=== PATIENT | female | born 2000 | race Caucasian/White ===

== ENCOUNTER → 2020-05-22 10:04 | Outpatient (CLI) | payer OTHER, SELFPAY ==
--- NOTE | 2020-05-22 10:10 | DI.US.S_ITS ---
PROCEDURE: US OB >= 14 WEEKS FETUS INDICATIONS: 20 WEEK ANATOMY OUTSIDE/PRIOR DATING DATA: Last menstrual period (LMP): 01/03/2020. LMP-based estimated date of delivery (PAMELLA): 10/09/2020 . First dating scan (date and location): 05/22/2019 . Estimated date of delivery (PAMELLA) from first dating scan: 10/06/2019 . TECHNIQUE: Real-time scanning was performed of the fetus, with image documentation and biometric measurements. Endovaginal scanning: No COMPARISON: None. FINDINGS: General: A single living intrauterine gestation is present. Presentation: Breech. Placenta: Placental position is anterior , without previa. Amniotic fluid index: 17 cm, normal range is 5-24 cm. heart rate: 132 beats per minute. Maternal cervical canal: 3.4 cm long. Normal lower limit is 2.5 cm. biometrics: Biparietal diameter: 20 weeks 5 days Head circumference: 20 weeks 5 days Abdominal circumference: 20 weeks 5 days Femur length: 20 weeks 2 days Estimated gestational age from initial scan: not applicable. Composite gestational age from present scan: 20 weeks 4 days Estimated weight and percentile: 363 g; 78th percentile Measurement variability for biometric dating: +/- 7 days from 14 weeks to 15 weeks 6 days gestation, +/- 10 days from 16 weeks to 21 weeks 6 days gestation, +/- 2 weeks from 22 weeks to 27 weeks 6 days gestation, +/- 3 weeks for 28 weeks gestation or later. weight reference: 4500 g or EFW >90/95% is considered macrosomia or large for gestational age. EFW <10% is small for gestational age. EFW 5% or less is considered intra-uterine growth restriction. Anatomic survey: Neuro: Ventricles are non-dilated at less than 10 mm. Cisterna magna is normal at 3-11 mm. Cerebellum is normal in size and morphology. Nuchal skin fold: Normal at less than 6 mm between 14-21 weeks gestational age. Face: Nose and lips are normal and the facial profile is not well seen. Spine: No evidence for spina bifida. Heart: 4-chambered heart is present, with normal ventricular outflow tracts. Diaphragm: Diaphragm is intact. Stomach: Left-sided stomach is present. Kidneys: No hydronephrosis. Normal is less than 5 mm in 2nd trimester, less than 7 mm in 3rd trimester. Cord: 3-vessel cord has orthotopic insertion. Bladder: Normal in size. Extremities: All 4 extremities identified. IMPRESSION: 1. Single living IUP with mean composite gestational age of 20 weeks 4 days corresponding to ultrasound PAMELLA of 10/05/2020. 2. Facial profile not well visualized; otherwise normal anatomy. Follow-up recommended. Dictated by: Enrique ARMSTRONG Interpreted: Wisam Stokes MD on 05/22/2020 at 11:55 Approved by: Wisam Stokes M.D. on 05/22/2020 at 13:17
== END ==
PROVIDERS: PCP Nurse Practitioner Obstetrics & Gynecology; Referring Provider Nurse Practitioner Obstetrics & Gynecology; Visit Provider Nurse Practitioner Obstetrics & Gynecology
DX: Z36.89 Encounter for other specified antenatal screening (principal); Z3A.20 20 weeks gestation of pregnancy
CPT/HCPCS: 76811

== ENCOUNTER → 2020-06-17 10:02 | Outpatient (CLI) | payer OTHER, SELFPAY ==
[2020-06-17 11:03] LABS: COVID19 -Nasal RAPID Negative (Negative)
== END ==
PROVIDERS: PCP Nurse Practitioner Obstetrics & Gynecology; Visit Provider Physician Assistant
DX: Z20.822 Contact with and (suspected) exposure to COVID-19 (principal)
CPT/HCPCS: 87635

== ENCOUNTER → 2020-06-23 09:44 | Outpatient (CLI) | payer OTHER, SELFPAY ==
--- NOTE | 2020-06-23 09:45 | DI.US.S_ITS ---
PROCEDURE: US OB FOLLOW UP INDICATIONS: FACIAL PROFILE NOT VISUALIZED OUTSIDE/PRIOR DATING DATA: Last menstrual period (LMP): January 03, 2020. LMP-based estimated date of delivery (PAMELLA): October 09, 2020. First dating scan (date and location): May 22, 2020. Estimated date of delivery (PAMELLA) from first dating scan: October 05, 2020. TECHNIQUE: Real-time scanning was performed of the fetus, with image documentation. Endovaginal scanning: Performed COMPARISON: [facility], OB >= 14 WEEKS FETUS, 05/22/2020, 10:26. FINDINGS: A single living intrauterine gestation is present. Presentation: Cephalic heart rate: 139 beats per minute. Estimated gestational age from initial scan: 25 weeks 1 day. facial profile incompletely visualized due to position. The partially visualized facial profile is within normal limits. IMPRESSION: facial profile suboptimally visualized due to position. Visualized portion of the facial profile is within normal limits. Dictated by: Ashley Sandoval MD, PhD on 06/24/2020 at 17:28 Approved by: Ashley Sandoval MD, PhD on 06/24/2020 at 17:31
== END ==
PROVIDERS: PCP Nurse Practitioner Obstetrics & Gynecology; Referring Provider Nurse Practitioner Obstetrics & Gynecology; Visit Provider Nurse Practitioner Obstetrics & Gynecology
DX: Z36.2 Encounter for other antenatal screening follow-up (principal); Z3A.25 25 weeks gestation of pregnancy
CPT/HCPCS: 76816

== ENCOUNTER → 2020-07-03 07:49 | Outpatient (CLI) | payer OTHER, SELFPAY ==
[2020-07-03 09:01] LABS: Hematocrit 36.8 % (36-46); Hemoglobin 12.5 g/dL (12.0-16.0); Mean Corpuscular Hemoglobin 32.4 PG (26-34); Mean Corpuscular Volume 95.3 fL (80-100); Platelet Count 164 X10^3/uL (150-400); Red Blood Cell Count 3.86 X10^6/uL (4.0-5.2); Red Cell Distribution Width 13.3 % (11.6-14.8); White Blood Cell Count 8.8 X10^3/uL (4.5-11.0)
[2020-07-03 09:48] LABS: Glucose Fasting 76 mg/dL (70-100)
[2020-07-03 10:12] LABS: Glucose Tol Interpretation INTERPRETATION
[2020-07-03 10:29] LABS: Glucose 1 Hour 88 mg/dL (70-170)
[2020-07-03 11:04] LABS: Glucose 2 Hour 97 mg/dL (70-140)
== END ==
PROVIDERS: PCP Nurse Practitioner Obstetrics & Gynecology; Referring Provider Nurse Practitioner Obstetrics & Gynecology; Visit Provider Nurse Practitioner Obstetrics & Gynecology
DX: Z34.90 Encounter for supervision of normal pregnancy, unspecified, unspecified trimester (principal); Z13.1 Encounter for screening for diabetes mellitus; Z67.91 Unspecified blood type, Rh negative; Z3A.26 26 weeks gestation of pregnancy
CPT/HCPCS: 36415; 82951; 82952; 85027; 86850

== ENCOUNTER 2020-08-30 15:29 | Observation (INO) | payer OTHER, SELFPAY ==
--- NOTE | 2020-08-30 15:37 | P.TNLD_ITS ---
Visit Information Visit Information Date of evaluation: 08/30/20 Primary OB Provider: Funmilayo Millard On-call OB Provider: Braxton Fernandez Reason for Evaluation: Yes pre-term labor Comments/Additional reasons for admission: 19YO @ 34wks 1day by LMP and 11wk US here for evaluation of low pelvic pressure. Has had nausea and vomiting for the last 2-3 days. Able to keep down occasional food and fluids, but not much. +FM and BH ctx. No VB or LOF. Uncomplicated PN care w/ CNM. Hx of term NSVB @ [id number]. Declines medication for nausea and/or contractions, but is open to IV fluids. Vital Signs Vital Signs: stable, see below [facility] Social History (Updated 08/30/20 @ 15:41 by Funmilayo Millard CNM) marital status: number of children: 1 household members: spouse and children lives independently: Yes caregiver/support person: No education level: high school occupational status: unemployed Review of Systems Review of Systems ROS: Yes All systems reviewed with the patient and are negative except as otherwise documented Exam Vital Signs (past 8 hours): BP 129/76, HR 101, T 36.3C Temporal Presentation: vertex Evaluation Evaluation Baseline heart rate: 140 Variability: Moderate (11-25) monitor accelerations: Present Monitor Decelerations: Absent Contraction Frequency (minutes): 3 Uterine Contraction Intensity: Mild Category of Tracing: Reactive Status: Category l Cervical dilation (cm): 1 Cervical effacement (%): 50 station: -3 Diagnosis, Plan/Disposition Final Diagnosis (1) uterine contractions in third trimester, antepartum: Status: Acute Problem details: Mild contractions persisted, but HR decreased to 88 after 1.5L LR IVFB. CE remains unchanged after 4 hours. Discharged to home w/ routine labor precautions. Follow-up as previously scheduled.
[2020-08-30] MEDS: LACTATED RINGERS 1,000 ML 1000 ML IV (15:50)
[2020-08-30 15:52] LABS: Appearance Urine UA CLEAR; Bilirubin Urine UA NEGATIVE (NEGATIVE); Color Urine UA YELLOW; Glucose Urine UA NEGATIVE (Negative); Ketones Urine UA NEGATIVE (NEGATIVE); Leukocyte Esterase Urine UA NEGATIVE (NEGATIVE); Nitrite Urine UA NEGATIVE (Negative); Occult Blood Urine UA NEGATIVE (Negative); Protein Urine UA NEGATIVE (Negative); Urobilinogen Urine UA 0.2 E.U./dL (0.2)
[2020-08-30 15:53] LABS: pH Urine UA 6.5 (4.5-8.0)
== END 2020-08-30 19:45 | disposition home or self-care (01) ==
LOC: LABOR 15:31
PROVIDERS: Admitting Provider Nurse Practitioner Obstetrics & Gynecology; PCP Nurse Practitioner Obstetrics & Gynecology; Referring Provider Nurse Practitioner Obstetrics & Gynecology; Visit Provider Nurse Practitioner Obstetrics & Gynecology
DX: O47.03 False labor before 37 completed weeks of gestation, third trimester (principal); O21.9 Vomiting of pregnancy, unspecified; Z3A.34 34 weeks gestation of pregnancy
CPT/HCPCS: 59025; 59050; 81003; 87081; 96360; G0378; G0379

== ENCOUNTER 2020-10-01 16:58 | Inpatient (IN) | payer OTHER, SELFPAY ==
--- NOTE | 2020-10-01 17:10 | PM.OBHP.1 ---
OB HPI Date/Time Date of admission: 10/01/20 Date Patient Seen: 10/01/20 Time Patient Seen: 17:11 History of Present Condition Chief complaint: Eval of Labor : 2 Para: 1 Estimated Date of Delivery: 10/09/20 Estimated Gestational Age (weeks): 38.6 Narrative: Candice Herbert is a 19 year old female @ [id number] by LMP and early US who presents for evaluation of PROM. Had a large gush of clear fluid this morning and has continued to leak clear fluid throughout the day. Declined to come in until this afternoon. Has been feeling mild contractions today with a few stronger ones while walking into the hospital. No vaginal bleeding. Uncomplicated care w/ CNM. SPD diagnosed at last visit has been bothering her a lot in the last week. Desires low intervention and declines pitocin augmentation at this time. is present and supportive. Indications Other reason(s) for admission: PROM History of Present care: good care, initiated at week # (11), number of visits (9) and pounds weight gain (66) Obstetrical complications: none Medical complications: other (obesity with excessive weight gain) Preadmission Labs Blood type: B (-) negative -: Antibody screen: negative, Cystic fibrosis screen: positive, GBS status: negative, HBsAG: negative, HIV: negative and RPR/VDLR: negative -: Chlamydia screen: not detected and Gonorrhea screen: not detected -: Rubella: immune HCT: 36.8 HCAB: negative Cell-free DNA: negative, male Narrative: 2hr gtt: 76/88/97 Prior (ies) History: 06/27/18: NSVB @ [id number], 6#9oz, epidural, intact perineum, no complications Evaluation Evaluation Baseline heart rate: 130 Variability: Moderate (11-25) monitor accelerations: Present Monitor Decelerations: Absent Contraction Frequency (minutes): 0 Uterine Contraction Intensity: Mild Category of Tracing: Reactive Status: Category l Comments: Clinic CE 09/30/20: 5/80%/-3, BBOW [facility] Medical History (Updated 10/01/20 @ 17:23 by Funmilayo Millard CNM) 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, antepartum Obesity (BMI 30-39.9) Social History (Updated 08/30/20 @ 15:41 by Funmilayo Millard CNM) marital status: number of children: 1 household members: spouse and children lives independently: Yes caregiver/support person: No education level: high school occupational status: unemployed Review of Systems Review of Systems ROS: Yes All systems reviewed with the patient and are negative except as otherwise documented Exam Vital Signs (past 8 hours): BP 115/69, HR 112, T 36.4C Temporal Resp Effort & Inspection: normal respiratory effort Auscultation: clear to auscultation bilaterally Cardio Rate: regular rate Rhythm: regular rhythm Heart Sounds: S1 normal and S2 normal Presentation: vertex Assessment and Plan Assessment and Plan Assessment and Plan narrative: A: Term PROM Not in labor Favirable cervix No indicatio for GBS prophylaxis Cat I FHR P: Admit, routine orders w/ SL IV and routine labs. Recommend nipple stimulation w/ breast pump some time between 12-24 hours of ROM, given her refusal of pitocin augmentation.Reassess in 4 hours or sooner, PRN.
[2020-10-01 18:07] LABS: Add Manual Diff / Slide Review NO; Basophils Absolute Auto 100 /uL (0-100); Basophils Percent Auto 0.5 % (0-2); Eosinophils Absolute Auto 100 /uL (0-450); Eosinophils Percent Auto 0.6 % (2-4); Hematocrit 34.5 % (36-46); Hemoglobin 11.6 g/dL (12.0-16.0); Lymphocytes Absolute Auto 1900 /uL (1100-4500); Lymphocytes Percent Auto 16.7 % (25-40); Mean Corpuscular HGB Conc 33.5 % (30-36); Mean Corpuscular Hemoglobin 29.3 PG (26-34); Mean Corpuscular Volume 87.7 fL (80-100); Monocytes Absolute Auto 900 /uL (0-900); Monocytes Percent Auto 7.5 % (3-14); Neutrophils Absolute Auto 8500 /uL (1500-7000); Neutrophils Percent Auto 74.7 % (50-75); Platelet Count 137 X10^3/uL (150-400); Red Blood Cell Count 3.94 X10^6/uL (4.0-5.2); White Blood Cell Count 11.3 X10^3/uL (4.5-11.0)
[2020-10-01 18:08] VITALS: BP 115/69
[2020-10-01 19:06] LABS: COVID19 - ADMIT (NP swab/PCR) Negative (Negative)
[2020-10-01] MEDS: OXYTOCIN PREMIX 30 UNIT/500 ML PLAST..BAG IV (21:53)
[2020-10-01] MEDS: LACTATED RINGERS 1,000 ML 100 ML IV (21:58)
--- NOTE | 2020-10-02 03:13 | PM.OBPNLAB ---
Date/Time Date Patient Seen: 10/01/20 Time Patient Seen: 21:00 Pain Control Comments: Remains comfortable, feeling occasional mild contractions only after 2 rounds of pumping/walking/rest. Now declines to continue pumping and would be open to starting pitocin in 1-2 hours. VS: 121/62, Hr 96bpm, T 36.6C Temporal Pelvic Exam station: -3 Comments: CE deferred, PROM- not in labor Contractions Monitor mode: External Contraction frequency (min): 6 Contraction duration (min): 1 Contraction pattern: Irregular Contraction intensity: Mild Status status: Category ll (overall reassuring) Heart Rate Baseline: 125 Monitor Accelerations: Present Monitor Decelerations: Variable Monitor Variability: Moderate Assessment and Plan Assessment: other Plan: begin patient augmentation Comments: Continuous EFM w/ pitocin, per protocol. Reassess after 2 hours of strong contractions.
--- NOTE | 2020-10-02 03:53 | PM.OBPNLAB ---
Date/Time Date Patient Seen: 10/02/20 Time Patient Seen: 03:15 Pain Control Comments: Requested CE and then epidural after hearing cervical progress. Now comfortable after combined epidural. VS: 130/69, HR 95bp, T 36.4C Temporal Pelvic Exam Dilation (cm): 6 Effacement (%): 80 station: -2 Amniotic membrane status: Leaking (clear) Contractions Contractions on admission: irregular Monitor mode: External Pitocin rate (mU/min): 8 Contraction frequency (min): 3 Contraction duration (min): 1 Contraction pattern: Regular Contraction phase: Contraction Contraction intensity: Moderate Status status: Category ll (overall reassuring) Heart Rate Baseline: 120 Monitor Accelerations: Present Monitor Decelerations: Variable (rare, mild) Monitor Variability: Moderate Assessment and Plan Comments: Continue pitocin titration to adequate contraction pattern. Encourage frequent position changes w/ peanut ball. Reassess in 4 hours or sooner, PRN
--- NOTE | 2020-10-02 04:12 | PM.AN.REGBLK ---
Regional Block Pre-procedure Procedure: Continuous Lumbar Epidural for L&D Attending OB provider: Funmilayo Millard PMH/ROS narrative: PROM, term labor, BMI 45, no complications PSH/Anesthesia history narrative: pt reported difficult, painful epidural placement with previous Labs: Hct 34.5 % (36-46) L 10/01/20 17:41 Plt Count 137 X10^3/uL (150-400) L 10/01/20 17:41 Medications: Current Medications Generic Name Dose Route Start Last Admin Trade Name Freq PRN Reason Stop Dose Admin Calcium Carbonate 1,000 mg 10/01/20 17:06 Calcium Carbonate 500 Mg Tab PO Q2HR PRN Dyspepsia Carboprost Tromethamine 250 mcg 10/01/20 17:06 Carboprost 250 Mcg/Ml Ampul IM Q90M PRN Bleeding Diphenhydramine HCl 25 mg 10/02/20 03:27 Diphenhydramine 50 Mg/Ml Vial IV Q10M PRN Pruritis Lactated Ringer's 1,000 mls @ 100 mls/hr 10/01/20 17:15 10/01/20 21:58 Lactated Ringers IV 100 mls/hr CONT SANDY Administration Oxytocin/Lactated Ringer's 30 unit in 500 mls @ 200 mls/hr 10/01/20 17:06 Oxytocin Premix IV CONT PRN Bleeding Protocol Tranexamic Acid 1,000 mg/ 100 mls @ 200 mls/hr 10/01/20 17:06 Sodium Chloride IV NOW PRN Bleeding Oxytocin/Lactated Ringer's 30 unit in 500 mls @ 1 mls/hr 10/01/20 17:15 10/01/20 21:53 Oxytocin Premix IV 1 milliunit/min TITRATE SANDY 1 mls/hr Administration Protocol 1 MILLIUNIT/MIN FENT 2MCG/ML BUPIV 0.125% EPI 200 mcg in 100 mls @ 6 mls/hr 10/02/20 03:30 Fentanyl/Bupiv/Ns 2mcg/Ml - 0.125% EPIDURAL CONT SANDY Methylergonovine Maleate 0.2 mg 10/01/20 17:06 Methylergonovine 0.2 Mg Tablet PO Q6HR PRN Heavy Bleeding Methylergonovine Maleate 0.2 mg 10/01/20 17:06 Methylergonovine 0.2 Mg/Ml Vial IM NOW PRN Bleeding Misoprostol 800 mcg 10/01/20 17:06 Misoprostol 200 Mcg Tablet [place] NOW PRN Bleeding Misoprostol 1,000 mcg 10/01/20 17:06 Misoprostol 200 Mcg Tablet [place] NOW PRN Bleeding Misoprostol 400 mcg 10/01/20 17:06 Misoprostol 200 Mcg Tablet SL NOW PRN Bleeding Ondansetron HCl 4 mg 10/01/20 17:06 Ondansetron 4 Mg/2 Ml Inj IV Q4HR PRN Nausea And Vomiting Oxytocin 10 unit 10/01/20 17:06 Oxytocin 10 Unit/Ml Vial IM NOW PRN Bleeding Allergies: Allergies Allergy/AdvReac Type Severity Reaction Status Date / Time No Known Drug Allergies Allergy Verified 10/01/20 20: Procedure Insertion date: 10/02/20 Insertion time: 03:40 Prep/Local: betadine x3 Interspace: L3-4 Patient position: sitting Needle: 18 gauge Hustead (CSE: 27g Pencan through Hustead, clear CSF, 1mL 0.25% bupiv) Loss of resistance with: saline SHAMEKA at (cm): 7 Catheter placed at SKIN (cm): 13 Catheter in SPACE (cm): 6 Insertion: No CSF, No Blood, No Paresthesia with insertion, No Paresthesia with injection and No Test dose reaction Initial Medications TEST DOSE time: 03:42 TEST DOSE: 1.5% lidocaine with epinephrine 1:200k (mL): 3 BOLUS DOSE time: 04:10 BOLUS DOSE (mL): 5 BOLUS DOSE med: other (infusate) Infusion INFUSION: 0.125% bupivacaine and with fentanyl 2 mcg/mL Initial rate (mL/hr): 9 Post-procedure Anesthesia time START: 03:32 Anesthesia time END: 08:40 Post-procedure Anesthesia Assessment: Yes CV function: HR/BP stable, Yes Resp function: RR/sat/airway adequate, Yes Mental status appropriate and No Anesthesia complications
--- NOTE | 2020-10-02 07:29 | P.PNOB_ITS ---
Date/Time Date Patient Seen: 10/02/20 Time Patient Seen: 07:00 Pain Control Comments: Patient has been feeling more on her right side than left and has used her PCEA, but remains comfortable w/ epidural. VS:BP 125/62, HR 86bpm, T 35.8C Temporal Pelvic Exam Dilation (cm): 8 Effacement (%): 90 station: -1 Amniotic membrane status: Leaking (clear) Comments: IUPC placed (RN unable to titrate pitocin based on external toco). Blood in IUPC line. Contractions Date/Time contractions began: 010 Monitor mode: External Pitocin rate (mU/min): 0 Contraction frequency (min): 3 Contraction pattern: Regular Contraction phase: Contraction Contraction intensity: Moderate Status status: Category ll Heart Rate Baseline: 120 Monitor Accelerations: Present Monitor Decelerations: Variable Monitor Variability: Moderate Assessment and Plan Assessment: active labor Plan: continuous present management Comments: RN was unable to flush IUPC. IUPC was removed and CE changed from 8 t o 9cm at that time. Pitocin in currently off for resolution of FHR decelerations. Discussed case w/ . Will consult [facility] OB/ PRN, persistent cat II FHR, unable to restart pitocin or no change in 1-2 hrs.
--- NOTE | 2020-10-02 09:03 | P.PCNOB_ITS ---
Events: Other (excessive weight gain (66lbs)) Labor & Delivery Delivery date: 10/02/20 Intrapartal Events: Deceleration (recurrent variables, ernesto during second stage) Cervical ripening method: none Induction method: per pitocin protocol Delivery monitor: external uterine and internal FHT Route of delivery: Episiotomy description: None L&D Laceration Description: None Estimated blood loss (mL): 25 Anesthesia Type: Epidural Narrative: [facility] was being monitored closely for progress d/t Cat II FHR. Began pushing @ C/C/0 with steady progress and FSE applied for coincidence with maternal HR while pushing. Meconium stained amniotic fluid was noted during second stage and RT was called to standby. NSVB of a viable baby boy in OA position with a single loose nuchal cord, reduced on the perineum, and a 60 second shoulder dystocia resolved with McRobert's and Sanabria' maneuvers. [place] was taken to the warmer with Apgars of 8/9 and quickly brought back to the [facility]. Hospital cord blood sample was collected. Remaining 30 units of pitocin in 500mL LR was started at 300mL/hr for AMTSL. Gentle cord traction and single maternal push led to spontaneous, schultze delivery of an apparently intact placenta, membranes and 3VC. Fundus immediately firm and bleeding minimal. Vagina and perineum inspected and intact. QBL 25mL. Both mother and baby stable and skin to skin as I left the room. [place] Baby 1: Infant gender: Male Presentation: vertex Position: Right Occiput Anterior Cord Vessel Description: 3 Vessels score (1 min): 8 score (5 min): 9 weight: 3.822 kg Plan for aftercare: Routine care
[2020-10-02] MEDS: LANOLIN OINT 7 GM 1 APPLIC TOP (12:30)
[2020-10-02] MEDS: IBUPROFEN 600 MG TABLET PO (22:30)
--- NOTE | 2020-10-03 08:46 | P.DS_ITS ---
Discharge Providers Provider Date of admission: 10/01/20 16:58 Discharge Date: 10/03/20 Primary care physician: Funmilayo Millard CNM Consults: 10/03/20 09:00 Consult to Child Development Assistant Routine Comment: Discharge provider: Funmilayo Millard CNM Summary Hospital Course Date Patient Seen: 10/03/20 Time Patient Seen: 08:47 Diagnoses: o80.0 Hospital Course: Candice is voiding, ambulating and independently. Tolerating a general diet. Has had a lot of cramping pain, but declines PO medication, pain improved overnight with a heating pad and sleep. Lochia is light to moderate without clots. Peripartum Data Delivery Method: Natural Vaginal Laceration Description: None 1: Gender: Male Disposition of : home Discharge Diagnosis (1) Encounter for full-term uncomplicated delivery: Status: Acute Status at Discharge Cognitive/behavioral status at discharge: at baseline, oriented Functional status at discharge: independent ambulation Overall status at discharge: patient is progressing back to baseline Time Spent with Patient Time attestation: Total time spent providing and/or coordinating discharge services: 25 minutes Time spent: Less than 30 minutes Objective Labs Result Diagrams: 10/01/20 17:41 Labs: Laboratory Results - last 24 hr 10/02/20 15:23 Maternal Bleed Negative Exam Vital Signs (past 8 hours): BP 112/77mmHg, HR 83bpm, T 98.0F Temporal Other: Fundus firm @ U-1, lochia scant, perineum intact with minimal edema Discharge Plan Discharge Plan Patient Disposition: Home Discharge orders & Medications Prescriptions: Continued No Known Home Medications RF: 0 Follow up/Referrals: Funmilayo Millard CNM [Primary Care Provider] - (Follow-up by [facility] 10/15/20 @ 0900(PST)/1200(EST) Follow-up @ 6 weeks with new provider once established in [place]) Diet/Activity/Treatments Diet: Regular Activity: pelvic rest x 6 weeks Skin/Wound/Dressing Care Report to your healthcare provider any signs of infection, such as:: chills, fever, increased pain, unusual drainage and unusual redness Visit Report/Discharge Packet Instructions: DI for Depression Discharge Data Primary Care Provider: Funmilayo Millard
[2020-10-03 11:34] VITALS: BP 112/77; PULSE 83; RESP 14; TEMP 36.7
[2020-10-03] MEDS: RHO(D) IMMUNE GLOBULIN 1,500 UNIT SYRINGE 1500 UNIT IM (12:39)
== END 2020-10-03 19:42 | disposition home or self-care (01) | DRG 807 ==
PROVIDERS: Admitting Provider Nurse Practitioner Obstetrics & Gynecology; PCP Nurse Practitioner Obstetrics & Gynecology; Referring Provider Nurse Practitioner Obstetrics & Gynecology; Visit Provider Nurse Practitioner Obstetrics & Gynecology
DX: O42.12 Full-term premature rupture of membranes, onset of labor more than 24 hours following rupture (principal); Z37.0 Single live birth; Z3A.38 38 weeks gestation of pregnancy; O66.0 Obstructed labor due to shoulder dystocia; O69.1XX0 Labor and delivery complicated by cord around neck, with compression, not applicable or unspecified; O76 Abnormality in fetal heart rate and rhythm complicating labor and delivery
CPT/HCPCS: 01967; 36415; 59050; 84112; 85025; 85460; 85461; 86850; 86900; 86901; 87635; C9803; G0379; J2590; J2790